=== PATIENT | female | born 1955 ===

== ENCOUNTER 2023-11-28 17:43 | Outpatient (REF) | payer SELFPAY ==
[2023-11-28 18:37] LABS: Absolute Basophil Count 0.05 10^3/uL (0.0-0.2); Absolute Eosinophil Count 0.15 10^3/uL (0.0-0.7); Absolute Lymphocyte Count 1.87 10^3/uL (1.2-3.4); Absolute Monocyte Count 1.01 10^3/uL (0.1-0.8); Absolute Neutrophil Count 8.36 10^3/uL (1.2-6.7); Basophils % 0.4; Eosinophils % 1.3; HCT 34.6 % (36.0-46.0); HGB 10.9 g/dL (11.2-15.7); Immature Grans % 1.7; Lymphocytes % 16.1; MCH 26.5 pg (27.0-33.0); MCHC 31.5 % (32.0-36.0); MCV 84 fL (80-95); MPV 9.2 fL (8.0-11.0); Monocytes % 8.7; Neutrophils % 71.8; Platelet Count 478 10^3/uL (130-400); RBC 4.12 10^6/uL (3.93-5.22); RDW 16.5 % (11.7-14.6); RDW-SD 50.8 fL; WBC 11.64 10^3/uL (4.4-10.8)
[2023-11-28 18:57] LABS: ALT 22 U/L (14-59); AST 11 U/L (15-37); Albumin 2.9 g/dL (3.4-5.0); Alkaline Phosphatase 96 U/L (46-116); Anion Gap 11.6 mmol/L (3-11); BUN 19 mg/dL (7-18); Bilirubin, Total 0.2 mg/dL (0.2-1.0); CO2 26.4 mmol/L (21.0-32.0); CREATININE 1.1 mg/dL (0.55-1.02); Calcium 8.7 mg/dL (8.5-10.1); Chloride 100 mmol/L (98-107); Estimated GFR 54.06 (mL/min/1.73m2); Glucose 124 mg/dL (74-106); Potassium 3.8 mmol/L (3.5-5.1); Sodium 138 mmol/L (136-145); TSH 1.44 uIU/Ml (0.36-3.74); Total Protein 5.8 g/dL (6.4-8.2)
== END 2023-11-28 17:44 | disposition home or self-care (01) ==
LOC: LBN 17:43
PROVIDERS: PCP Family Medicine; Visit Provider Family Medicine
DX: C79.71 Secondary malignant neoplasm of right adrenal gland (principal)
CPT/HCPCS: 80053; 84443; 85025